=== PATIENT | male | born 1980 | race American Indian/Alaskan Native ===

== ENCOUNTER 2017-03-06 15:14 | Outpatient (CLI) | payer OTHER ==
--- NOTE | 2017-03-06 16:35 | XRay Report ---
Lumbar spine: Pain. AP and lateral views demonstrate mild anterior spondylosis at the superior margins of L4 and L5. Vertebral height, alignment, and interspaces are preserved. The bones are well-mineralized. Of incidental note is an IVC filter. No prior exams. Impression: Mild degenerative spondylosis. Cervical spine: Pain. The patient has pedicle screws bilaterally from C4-C7 with anterior hardware stabilizing fusions between C5 and C7. Although the hardware obscures much of the bone there appears to be normal alignment and the interspaces to C-5 over preserved. No prevertebral swelling. Impression: Surgical changes. No acute finding identified.
== END 2017-03-06 15:15 | disposition home or self-care (01) ==
LOC: XRAY 15:14
PROVIDERS: ATTEND Internal Medicine
DX: Z02.71 Encounter for disability determination (principal); M47.896 Other spondylosis, lumbar region; M43.22 Fusion of spine, cervical region; M54.2 Cervicalgia
CPT/HCPCS: 72040; 72100

== ENCOUNTER 2018-07-12 01:11 | Emergency (ER) | payer SELFPAY ==
[2018-07-12 02:06] VITALS: BP 117/86
[2018-07-12] MEDS ORDERED: MOTRIN PO ONE (03:49)
== END 2018-07-12 05:04 | disposition left against medical advice (07) ==
LOC: ED 01:11
DX: S61.216A Laceration without foreign body of right little finger without damage to nail, initial encounter (principal); Z53.21 Procedure and treatment not carried out due to patient leaving prior to being seen by health care provider; W26.0XXA Contact with knife, initial encounter; Y93.89 Activity, other specified; Y92.89 Other specified places as the place of occurrence of the external cause; Y99.8 Other external cause status

== ENCOUNTER 2018-07-12 19:11 | Emergency (ER) | payer SELFPAY ==
[2018-07-12 19:24] VITALS: BP 136/86
[2018-07-12] MEDS ORDERED: XYLOCAINE 1% MPF 5 mL INFILTRATI ONE (21:24)
--- NOTE | 2018-07-12 22:08 | XRay Report ---
FINAL REPORT PROCEDURE: XR FINGER(S) 2+V RT TECHNIQUE: RIGHT 5th finger radiographs, including AP, lateral, and oblique views. HISTORY: laceration COMPARISON: No prior studies are available for comparison. FINDINGS: Fracture (s) and/or Dislocation(s): None . Alignment: Normal. Joint space(s): Normal . Soft tissues: Normal . Bone mineralization: Normal . Foreign bodies: None . IMPRESSION: Normal Examination
[2018-07-12] MEDS ORDERED: BOOSTRIX IM ONE (22:13)
--- NOTE | 2018-07-12 22:16 | Emergency Department Report ---
- General Chief Complaint: Wound/Laceration Stated Complaint: RIGHT HAND FINGER LACERATION Time Seen by Provider: 07/12/18 21:23 Source: patient, family Mode of arrival: Ambulatory Limitations: No Limitations - History of Present Illness Initial Comments: Patient states he cut his pinky finger palmar side with a piece of glass last night presents with a 1 cm laceration distal first joint range of motion intact no nerve tendon or muscle involvement last tetanus shot unknown Onset/Timin -: hour(s) Location: other (right small finger ) Place: home Patient Tetanus UTD: No Context: accidental Associated Symptoms: pain Treatments Prior to Arrival: bandage - Related Data Previous Rx's Medication Instructions Recorded Last Taken Type Cephalexin [Keflex] 500 mg PO TID #30 capsule 07/12/18 Unknown Rx traMADol [Ultram] 50 mg PO Q6HR PRN 3 Days #12 tablet 07/12/18 Unknown Rx Allergies Allergy/AdvReac Type Severity Reaction Status Date / Time No Known Allergies Allergy Verified 07/12/18 05:40 ED Review of Systems ROS: Stated complaint: RIGHT HAND FINGER LACERATION Other details as noted in HPI Constitutional: denies: chills, fever Eyes: denies: eye pain, eye discharge, vision change ENT: denies: ear pain, throat pain Respiratory: denies: cough, shortness of breath, wheezing Cardiovascular: denies: chest pain, palpitations Endocrine: no symptoms reported Gastrointestinal: denies: abdominal pain, nausea, diarrhea Genitourinary: denies: urgency, dysuria Musculoskeletal: other (right pinky laceration ) Skin: other (laceration pinky ). denies: rash, lesions Neurological: denies: headache, weakness, paresthesias Psychiatric: denies: anxiety, depression Hematological/Lymphatic: denies: easy bleeding, easy bruising ED Past Medical Hx - Past Medical History Additional medical history: DVT - Surgical History Additional Surgical History: Neck Surgery - Social History Smoking Status: Current Every Day Smoker Substance Use Type: Marijuana - Medications Home Medications: Home Medications Medication Instructions Recorded Confirmed Last Taken Type Cephalexin [Keflex] 500 mg PO TID #30 capsule 07/12/18 Unknown Rx traMADol [Ultram] 50 mg PO Q6HR PRN 3 Days #12 tablet 07/12/18 Unknown Rx ED Physical Exam - General Limitations: No Limitations General appearance: alert, in no apparent distress - Head Head exam: Present: atraumatic, normocephalic - Eye Eye exam: Present: normal appearance - ENT ENT exam: Present: mucous membranes moist - Neck Neck exam: Present: normal inspection - Respiratory Respiratory exam: Present: normal lung sounds bilaterally. Absent: respiratory distress - Cardiovascular Cardiovascular Exam: Present: regular rate, normal rhythm. Absent: systolic murmur, diastolic murmur, rubs, gallop - GI/Abdominal GI/Abdominal exam: Present: soft, normal bowel sounds - Rectal Rectal exam: Present: deferred - Extremities Exam Extremities exam: Present: tenderness - Expanded Upper Extremity Exam Right Hand Wrist exam: Present: laceration (righ pinky kimbrough less than 1 cm ) Neuro motor exam: Present: wrist extension intact, thumb opposition intact, thumb IP flexion intact, thumb adduction intact, fingers 2-5 abduction intact Neurosensory exam: Present: 2-point discrimination, radial nerve intact, ulnar nerve intact, median nerve intact Vascular: Present: normal capillary refill, radial pulse, brachial pulse, ulnar pulse. Absent: vascular compromise, Pallo, pulse deficit radial art, pulse deficit ulnar art, pulse deficit brachial art - Back Exam Back exam: Present: normal inspection - Neurological Exam Neurological exam: Present: alert, oriented X3, CN II-XII intact, normal gait, reflexes normal. Absent: motor sensory deficit - Psychiatric Psychiatric exam: Present: normal affect, normal mood - Skin Skin exam: Present: warm, dry, intact, normal color. Absent: rash ED Course Vital Signs 07/12/18 19:19 Pulse Rate 93 H Blood Pressure 136/86 O2 Sat by Pulse 99 Oximetry - Laceration /Wound Repair Right Anterior Palm Finger Wound Location: upper extremity (right kimbrough pinky ) Wound Length (cm): 1 Wound's Depth, Shape: superficial, linear Wound Explored: clean Irrigated w/ Saline (ccs): 50 Betadine Prep?: Yes Anesthesia: 1% Lidocaine Volume Anesthetic (ccs): 2 (digital block ) Wound Debrided: minimal Wound Repaired With: sutures Suture Size/Type: 4:0 Number of Sutures: 4 Layer Closure?: No Sterile Dressing Applied?: Yes Progress: Right pinky laceration x-ray negative for fracture there is no nerve tendon or muscle involvement 1 similar laceration base of right pinky palmar bleeding controlled we'll clean with Betadine solution a anesthesia with 1% lidocaine plain . Digital block explained time between Reading and repaired with patient and possibility of increased infection patient verbalized understanding of same and irrigated with 50 mL of sterile saline and no foreign debris or contamination noted . 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 Instruction patient will be DC'd home in stable condition at this time ED Medical Decision Making - Radiology Data Radiology results: report reviewed, image reviewed no fracture no soft tissue abnormality - Medical Decision Making Right finger laceration repair x-ray negative for fracture or foreign bodies there is no nerve tendon or muscle involvement or any motions intact C procedure note we DC with rx for Keflex when necessary pain medicine patient follow-up with [facility] in 2 days for wound check patient given wound care instructions including signs and symptoms of infection Critical care attestation.: If time is entered above; I have spent that time in minutes in the direct care of this critically ill patient, excluding procedure time. ED Disposition Clinical Impression: Laceration of finger Qualifiers: Encounter type: initial encounter Finger: little finger Damage to nail status: without damage Foreign body presence: without foreign body Laterality: right Qualified Code(s): S61.216A - Laceration without foreign body of right little finger without damage to nail, initial encounter Disposition: DC-01 TO HOME OR SELFCARE Is pt being admited?: No Does the pt Need Aspirin: No Condition: Good Instructions: Laceration (ED), Suture Care (ED) Prescriptions: Cephalexin [Keflex] 500 mg PO TID #30 capsule traMADol [Ultram] 50 mg PO Q6HR PRN 3 Days #12 tablet PRN Reason: Pain Referrals: PRIMARY CARE, [Primary Care Provider] - 3-5 Days Forms: Work/School Release Form(ED) Time of Disposition: 22:47
== END 2018-07-12 23:03 | disposition home or self-care (01) ==
LOC: ED 19:11
DX: S61.216A Laceration without foreign body of right little finger without damage to nail, initial encounter (principal); F17.200 Nicotine dependence, unspecified, uncomplicated; F12.10 Cannabis abuse, uncomplicated; Z86.718 Personal history of other venous thrombosis and embolism; W25.XXXA Contact with sharp glass, initial encounter; Y93.89 Activity, other specified; Y99.8 Other external cause status; Y92.019 Unspecified place in single-family (private) house as the place of occurrence of the external cause
CPT/HCPCS: 90471; 90715; 99283

== ENCOUNTER 2018-07-25 10:31 | Emergency (ER) | payer SELFPAY ==
[2018-07-25 10:41] VITALS: BP 139/83
--- NOTE | 2018-07-25 11:16 | Emergency Department Report ---
ED Recheck HPI - General Chief Complaint: Laceration/Recheck/Suture Stated Complaint: STITCHS REMOVED Time Seen by Provider: 07/25/18 10:54 Source: patient Mode of arrival: Ambulatory Limitations: No Limitations - History of Present Illness Initial Comments: This is a 37-year-old male here to have his stitches removed from his right fourth digit that was placed on 07/12/2018. He denies any redness, swelling or drainage at site. He was placed on antibiotic and pain medication and denies any pain at present. No other complaints. MD Complaint: suture/staple removal Onset/Timin -: days(s) Initial Visit For: laceration Returns Today for: staple/Stitch removal Symptoms Since Prior Visit: no new symptoms Context: planned re-check Associated Symptoms: none Treatments Prior to Arrival: Given Antibiotics on, Given Pain Meds on - Related Data Previous Rx's Medication Instructions Recorded Last Taken Type Cephalexin [Keflex] 500 mg PO TID #30 capsule 07/12/18 Unknown Rx traMADol [Ultram] 50 mg PO Q6HR PRN 3 Days #12 tablet 07/12/18 Unknown Rx Allergies Allergy/AdvReac Type Severity Reaction Status Date / Time No Known Allergies Allergy Verified 07/25/18 10:40 ED Review of Systems ROS: Stated complaint: STITCHS REMOVED Other details as noted in HPI Constitutional: denies: chills, fever Respiratory: denies: cough, shortness of breath, wheezing Cardiovascular: denies: chest pain, palpitations Gastrointestinal: denies: nausea, vomiting Musculoskeletal: denies: back pain, joint swelling, arthralgia, myalgia Skin: other (healed laceration with sutures). denies: rash, lesions Neurological: denies: paresthesias ED Past Medical Hx - Past Medical History Previous Medical History?: Yes Additional medical history: DVT - Surgical History Past Surgical History?: Yes Additional Surgical History: Neck Surgery - Family History Family history: hypertension - Social History Smoking Status: Current Every Day Smoker Substance Use Type: Alcohol - Medications Home Medications: Home Medications Medication Instructions Recorded Confirmed Last Taken Type Cephalexin [Keflex] 500 mg PO TID #30 capsule 07/12/18 Unknown Rx traMADol [Ultram] 50 mg PO Q6HR PRN 3 Days #12 tablet 07/12/18 Unknown Rx ED Physical Exam - General Limitations: No Limitations General appearance: alert, in no apparent distress - Head Head exam: Present: atraumatic, normocephalic - Eye Eye exam: Present: normal appearance, PERRL - ENT ENT exam: Present: normal exam - Neck Neck exam: Present: normal inspection, full ROM. Absent: tenderness - Respiratory Respiratory exam: Present: normal lung sounds bilaterally. Absent: respiratory distress - Cardiovascular Cardiovascular Exam: Present: regular rate, normal rhythm, normal heart sounds, gallop - Extremities Exam Extremities exam: Present: normal inspection, full ROM, normal capillary refill , other (No cce. + 2 pulses in all extremities, no neurovascular compromise). Absent: tenderness, pedal edema, joint swelling - Neurological Exam Neurological exam: Present: alert, oriented X3, normal gait - Psychiatric Psychiatric exam: Present: normal affect, normal mood - Skin Skin exam: Present: warm, dry, intact, normal color, other (patient with small healed laceration to palmar side of the distal phalanx right fourth finger. 4 stitches noted without any signs of infection.). Absent: erythema - Expanded Skin Exam Expanded Distribution of rash: RUE (distal fourth phalanx right fourth digit, palmar side ) Description of rash: Absent: tenderness, erythematous, swelling, discharge, fluctuant, indurated ED Course Vital Signs 07/25/18 10:36 Temperature 98.6 F Pulse Rate 74 Respiratory 16 Rate Blood Pressure 139/83 O2 Sat by Pulse 100 Oximetry - Reevaluation(s) Reevaluation #1: 07/25/18 11:23 stable throughout ED course. 4 sutures removed from left fourth digit right hand without any complications. Wound edges well approximated and healing well. ED Recheck MDM - Medical Decision Making This is a 37-year-old male here to have the stitches removed from his finger that was placed on 07/12/2018. He is having no complaints. Assessment/plan 1: Encounter For suture removal-4 sutures was removed from right fourth finger. Wound edges are well approximated without any signs of infection. Patient with full range of motion to the finger and no signs of infection. He completed his antibiotic. Discharged home in stable condition. Vital signs are stable he is afebrile and has no pain. He is to follow up with his primary care physician when necessary. Critical care attestation.: If time is entered above; I have spent that time in minutes in the direct care of this critically ill patient, excluding procedure time. ED Disposition Clinical Impression: Encounter for removal of sutures Disposition: TO HOME OR SELFCARE Is pt being admited?: No Does the pt Need Aspirin: No Condition: Stable Instructions: Suture Removal (ED) Additional Instructions: Follow-up the primary care physician as needed. Keep Affected area clean and dry Referrals: PRIMARY CARE, [Primary Care Provider] - 3-5 Days [facility] [Outside] - 3-5 Days Forms: Work/School Release Form(ED)
== END 2018-07-25 11:30 | disposition home or self-care (01) ==
LOC: ED 10:31
DX: Z48.01 Encounter for change or removal of surgical wound dressing (principal); S61.218D Laceration without foreign body of other finger without damage to nail, subsequent encounter

== ENCOUNTER 2019-03-10 01:03 | Inpatient (IN) | payer SELFPAY ==
[2019-03-10 01:33] LABS: Basophils # (Auto) 0.1 K/mm3 (0.0-0.1); Basophils % (Auto) 0.7 % (0.0-1.8); Eosinophils # (Auto) 0.2 K/mm3 (0.0-0.4); Hematocrit 43.2 % (35.5-45.6); Hemoglobin 14.9 gm/dl (11.8-15.2); Lymphocytes % (Auto) 26.2 % (13.4-35.0); Mean Corpuscular HGB Conc 35 % (32-34); Mean Corpuscular Volume 90 fl (84-94); Monocytes # (Auto) 0.6 K/mm3 (0.0-0.8); Monocytes % (Auto) 7.5 % (0.0-7.3); Platelet Count 270 K/mm3 (140-440); Red Blood Count 4.83 M/mm3 (3.65-5.03); Red Cell Distribution Width 13.7 % (13.2-15.2)
--- NOTE | 2019-03-10 01:45 | XRay Report ---
PROCEDURE: XR CHEST 1V AP TECHNIQUE: A single view the chest was obtained. HISTORY: Chest Pain COMPARISONS: None FINDINGS: The lungs are clear. Heart size is normal. Pleural fluid is not seen. The bones and soft tissues reve al hardware in the lower cervical spine from previous multilevel fusion surgery. IMPRESSION: No acute cardiopulmonary process.. This document is electronically signed by Stef Arias MD., March 10 2019 01:43:44 AM ET
[2019-03-10 01:47] LABS: Partial Thromboplastin Time 23.6 Sec. (24.2-36.6)
[2019-03-10 01:56] LABS: BUN/Creatinine Ratio 10; Blood Urea Nitrogen 13 mg/dL (9-20); Calcium 9.9 mg/dL (8.4-10.2); Hemolysis Index 5
[2019-03-10] MEDS ORDERED: NACL 0.9% 500 ML 500 ML IV ONE ×2 (03:32→03:59)
[2019-03-10] MEDS ORDERED: SUBLIMAZE IV ONE (03:58)
[2019-03-10] MEDS ORDERED: LOVENOX SUB-Q STA (03:59)
--- NOTE | 2019-03-10 04:00 | Emergency Department Report ---
ED General Adult HPI - General Chief complaint: Chest Pain Stated complaint: CHEST TIGHTNESS HAND NUMBNESS Time Seen by Provider: 03/10/19 03:48 Source: patient, RN notes reviewed, old records reviewed Mode of arrival: Ambulatory Limitations: No Limitations - History of Present Illness Initial comments: This is a 38-year-old gentleman. The patient has a past medical history of recurrent DVT, supposed to be on anticoagulation, but noncompliant, chronic lower extremity thrombus, chronic lower extremity wounds The patient presents to the emergency room today with a complaint of nontraumatic chest pain. The chest pain is central and right-sided, left-sided. It does not radiate anywhere. He makes no complaint of right arm numbness to this provider. He reports acute on chronic leg pain. The leg pain is in the bilateral groin regions and posterior hamstrings. It radiates distally to the knees. There is no lower extremity weakness. There is no saddle anesthesia. There is no bladder or bowel retention or incontinence. Also endorses headache. The headache is left-sided and frontal. It is not sudden or thunderclap in nature. It did not reach maximal intensity within an hour. Denies fevers or chills. No recent cardiac risk stratification. Has not followed up with a primary care doctor. 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 Had a hypercoagulable workup in October 2018, appears to have been unremarkable. -: Gradual Location: back, left, right, lower extremity Radiation: extremity Severity scale (0 -10): 10 Quality: aching Consistency: intermittent Improves with: rest Worsens with: movement - Related Data Previous Rx's Medication Instructions Recorded Last Taken Type Apixaban [Eliquis] 5 mg PO BID #60 tablet 10/18/18 Unknown Rx Apixaban [Eliquis] 10 mg PO BID #14 tablet 10/18/18 Unknown Rx Allergies Allergy/AdvReac Type Severity Reaction Status Date / Time No Known Allergies Allergy Verified 07/25/18 10:40 ED Review of Systems ROS: Stated complaint: CHEST TIGHTNESS HAND NUMBNESS Other details as noted in HPI Constitutional: malaise. denies: fever Eyes: denies: eye discharge ENT: denies: epistaxis Respiratory: denies: cough Cardiovascular: chest pain Gastrointestinal: denies: nausea, vomiting, hematochezia Genitourinary: denies: dysuria Musculoskeletal: arthralgia, myalgia Skin: lesions Neurological: headache. denies: weakness ED Past Medical Hx - Past Medical History Previous Medical History?: Yes Hx Deep Vein Thrombosis: Yes Additional medical history: DVT - Surgical History Past Surgical History?: Yes Additional Surgical History: Neck Surgery - Social History Smoking Status: Never Smoker Substance Use Type: Marijuana - Medications Home Medications: Home Medications Medication Instructions Recorded Confirmed Last Taken Type Apixaban [Eliquis] 5 mg PO BID #60 tablet 10/18/18 Unknown Rx Apixaban [Eliquis] 10 mg PO BID #14 tablet 10/18/18 Unknown Rx ED Physical Exam - General Limitations: No Limitations General appearance: alert, in no apparent distress - Head Head exam: Present: atraumatic, normocephalic - Eye Eye exam: Present: normal appearance, EOMI. Absent: nystagmus - ENT ENT exam: Present: normal exam, normal orophraynx, mucous membranes moist, normal external ear exam - Neck Neck exam: Present: normal inspection, full ROM. Absent: tenderness, meningismus - Respiratory Respiratory exam: Present: normal lung sounds bilaterally. Absent: respiratory distress - Cardiovascular Cardiovascular Exam: Present: regular rate, normal rhythm, normal heart sounds. Absent: bradycardia, tachycardia, irregular rhythm, systolic murmur, diastolic murmur, rubs, gallop - GI/Abdominal GI/Abdominal exam: Present: soft. Absent: distended, tenderness, guarding, rebound, rigid, pulsatile mass - Rectal Rectal exam: Present: deferred - Extremities Exam Extremities exam: Present: full ROM, tenderness (tenderness in the bilateral proximal groin. Tenderness on the posterior hamstring. No pus, streaking. Escorted by nurse Stef See), other (2+ pulses noted in the bilateral upper, lower extremities. Compartments soft. No long bony tenderness. The pelvis is stable.). Absent: normal inspection (chronic-appearing wounds noted on the left lower extremity. Stasis changes are noted.), calf tenderness - Back Exam Back exam: Present: normal inspection, full ROM. Absent: tenderness, CVA tenderness (R), paraspinal tenderness, vertebral tenderness - Neurological Exam Neurological exam: Present: alert, other (Extraocular movements intact. Tongue midline. No facial droop. Facial sensation intact to light touch in the V1, V2, V3 distribution bilaterally. 5 and 5 strength in 4 extremities.. Sensation is intact to light touch in 4 extremities.). Absent: motor sensory deficit - Psychiatric Psychiatric exam: Present: normal affect, normal mood - Skin Skin exam: Present: warm, dry, intact, normal color. Absent: rash ED Course Vital Signs 03/10/19 03/10/19 01:12 03:22 Temperature 98.1 F Pulse Rate 89 72 Respiratory 18 19 Rate Blood Pressure 134/84 118/81 [Right] O2 Sat by Pulse 99 99 Oximetry ED Medical Decision Making - Lab Data Result diagrams: 03/10/19 01:16 03/10/19 01:16 Vital Signs 03/10/19 03/10/19 01:12 03:22 Temperature 98.1 F Pulse Rate 89 72 Respiratory 18 19 Rate Blood Pressure 134/84 118/81 [Right] O2 Sat by Pulse 99 99 Oximetry Lab Results 03/10/19 03/10/19 03/10/19 Range/Units 01:16 01:16 01:16 WBC 7.8 (4.5-11.0) K/mm3 RBC 4.83 (3.65-5.03) M/mm3 Hgb 14.9 (11.8-15.2) gm/dl Hct 43.2 (35.5-45.6) % MCV 90 (84-94) fl MCH 31 (28-32) pg MCHC 35 H (32-34) % RDW 13.7 (13.2-15.2) % Plt Count 270 (140-440) K/mm3 Lymph % (Auto) 26.2 (13.4-35.0) % Emanuel % (Auto) 7.5 H (0.0-7.3) % Eos % (Auto) 3.0 (0.0-4.3) % Baso % (Auto) 0.7 (0.0-1.8) % Lymph # 2.0 (1.2-5.4) K/mm3 Emanuel # 0.6 (0.0-0.8) K/mm3 Eos # 0.2 (0.0-0.4) K/mm3 Baso # 0.1 (0.0-0.1) K/mm3 Seg Neutrophils % 62.6 (40.0-70.0) % Seg Neutrophils # 4.9 (1.8-7.7) K/mm3 PT 13.8 (12.2-14.9) Sec. INR 1.00 (0.87-1.13) APTT 23.6 L (24.2-36.6) Sec. Sodium 139 (137-145) mmol/L Potassium 4.5 (3.6-5.0) mmol/L Chloride 96.9 L (98-107) mmol/L Carbon Dioxide 27 (22-30) mmol/L Anion Gap 20 mmol/L BUN 13 (9-20) mg/dL Creatinine 1.3 (0.8-1.5) mg/dL Estimated GFR > 60 ml/min BUN/Creatinine Ratio 10 % Glucose 93 (75-100) mg/dL Calcium 9.9 (8.4-10.2) mg/dL Troponin T < 0.010 (0.00-0.029) ng/mL - EKG Data -: EKG Interpreted by Ne EKG shows normal: sinus rhythm - EKG Data 03/10/19 05:29 CT scan EKG shows normal sinus, 75 bpm, no axis, QTC within normal limits, left ventricular hypertrophy, atrial enlargement, of this EKG is not consistent with ST elevation myocardial infarction. - Radiology Data Radiology results: report reviewed, image reviewed Print Report Referring Physician: MARINA BAHENA Patient Name: CARLOS HUSTON Date of : 1980 Sex: Male Report Date: 2019-03-10 Report Status: [place] [address] Cat Scan Report Signed Patient: CARLOS HUSTON MR#: [id number] : 1980 Acct:[id number] Age/Sex: 38 / M ADM Date: 03/10/19 Loc: ED Attending Dr: Ordering Physician: MARINA BAHENA MD Date of Service: 03/10/19 Procedure(s): CT angio chest Accession Number(s): [id number] cc: MARINA BAHENA MD PROCEDURE: CT ANGIO CHEST TECHNIQUE: Computerized tomographic angiography of the chest was performed after the IV injection of iodinated nonionic contrast including image processing. The image data was postprocessed using 2-dimensional multiplanar reformatted (MPR) and 3-dimensional (MIP and/or volume rendered) techniques. Automated exposure control, adjustment of mA and/or kV according to patient size, or iterative reconstruction dose optimization techniques were utilized. CT DOSE LENGTH PRODUCT: 480.7 mGycm HISTORY: Rule Out PE COMPARISONS: None . FINDINGS: Heart and pericardium: Normal. Thoracic aorta: There is no thoracic aortic aneurysm or dissection. Pulmonary vasculature: There is no pulmonary embolism. Lymph nodes: No enlarged thoracic lymph nodes. Lungs: Lungs are expanded. There are no infiltrates.. Pleural space: No effusion, thickening, or pneumothorax. Musculoskeletal structures: No significant abnormality. Upper abdominal structures: No significant abnormality. IMPRESSION: There is no pulmonary embolism. . This document is electronically signed by Manuel Riggs MD., March 10 2019 04:08:02 AM ET Transcribed By: CO Dictated By: MANUEL RIGGS MD Electronically Authenticated By: MANUEL RIGGS MD Signed Date/Time: 03/10/19 7820 - Medical Decision Making Differential diagnosis, including not limited to: GERD, gastritis, hiatal hernia, acute coronary syndrome, pulmonary and was, pneumonia, chronic recurrent thromboembolic disease in the groin Assessment and plan: 38-year-old male, reported multiple DVTs, noncompliant with anticoagulation, groin pain, leg pain, chronic wounds, CT scan of the chest negative for pulmonary embolus, loaded empirically with Lovenox, patient presents after hours, therefore we cannot obtain lower extremity DVT study. Troponin negative 2. EKG age appropriate. Patient appears comfortable. Patient will be admitted to the medical service for reinitiation of therapeutic anticoagulation, given inability to follow up, welfare case worker evaluation, and cardiac risk stratification, given history of hypercoagulable state. Case is presented to the Hospital physician, Dr.O Wilkerson, who has accepted the patient to the medical service. Critical care attestation.: If time is entered above; I have spent that time in minutes in the direct care of this critically ill patient, excluding procedure time. ED Disposition Clinical Impression: Chest pain, Leg pain, Noncompliance with medication regimen Disposition: OP ADMIT IP TO THIS HOSP Is pt being admited?: Yes Does the pt Need Aspirin: Yes Condition: Good Instructions: Chest Pain (ED) Referrals: JIMMY CERVANTES MD [Primary Care Provider] - 3-5 Days
--- NOTE | 2019-03-10 04:10 | Cat Scan Report ---
PROCEDURE: CT ANGIO CHEST TECHNIQUE: Computerized tomographic angiography of the chest was performed after the IV injection of iodinated nonionic contrast including image processing. The image data was postprocessed using 2-di mensional multiplanar reformatted (MPR) and 3-dimensional (MIP and/or volume rendered) techniques. Au tomated exposure control, adjustment of mA and/or kV according to patient size, or iterative reconstr uction dose optimization techniques were utilized. CT DOSE LENGTH PRODUCT: 480.7 mGycm HISTORY: Rule Out PE COMPARISONS: None . FINDINGS: Heart and pericardium: Normal. Thoracic aorta: There is no thoracic aortic aneurysm or dissection. Pulmonary vasculature: There is no pulmonary embolism. Lymph nodes: No enlarged thoracic lymph nodes. Lungs: Lungs are expanded. There are no infiltrates.. Pleural space: No effusion, thickening, or pneumothorax. Musculoskeletal structures: No significant abnormality. Upper abdominal structures: No significant abnormality. IMPRESSION: There is no pulmonary embolism. . This document is electronically signed by Manuel Carcamo MD., March 10 2019 04:08:02 AM ET
[2019-03-10] MEDS ORDERED: MORPHINE IV PRN (05:02)
[2019-03-10] MEDS ORDERED: ZOFRAN IV PRN (05:02)
[2019-03-10] MEDS ORDERED: TYLENOL PO PRN (05:03)
[2019-03-10] MEDS ORDERED: NITROSTAT SL PRN (05:04)
[2019-03-10] MEDS ORDERED: BABY ASPIRIN PO ONE ×2 (05:31→05:38)
[2019-03-10] MEDS ORDERED: NITRO-BID 2% TP ONE (06:10)
[2019-03-10] MEDS ORDERED: MORPHINE ONE (06:11)
[2019-03-10] MEDS ORDERED: BABY ASPIRIN ONE (06:11)
[2019-03-10] MEDS: NITRO-BID 2% TP SCH ×2 (06:19→11:11)
[2019-03-10 07:44] LABS: Creatine Kinase MB 1.9 ng/mL (0.0-4.0)
--- NOTE | 2019-03-10 09:09 | History and Physical Report ---
CHIEF COMPLAINT: Chest pain. Other complaint includes pain in the lower extremities. HISTORY OF PRESENT ILLNESS: The patient is a 38-year-old male who said he has been having tightness in the chest and also some numbness in the hands. The patient said that symptom has been going on for few days and denied history of diaphoresis, nausea or vomiting but admitted to having some shortness of breath. The patient also has pain in both lower extremities. There is no history of fever or chills and no history of cough and the patient was seen in the Emergency Room. PAST MEDICAL HISTORY: Pertinent for recurrent deep vein thrombosis and used to be on Coumadin but stopped Coumadin after some months. PAST SURGICAL HISTORY: Pertinent for neck surgery. FAMILY HISTORY: Noncontributory. SOCIAL HISTORY: The patient does not smoke cigarettes, does not drink alcohol and the patient uses illicit drug, notably marijuana. MEDICATIONS: The patient said he used to be on the warfarin or Coumadin and also was started on Eliquis, which he stopped towards October 2018. ALLERGIES: There are no known drug allergies. REVIEW OF SYSTEMS: CONSTITUTIONAL: There is no fever, no chills, no diaphoresis. HEENT: There is no headache or sore throat. CARDIOVASCULAR SYSTEM: There is chest pain, but no orthopnea. RESPIRATORY SYSTEM: There is shortness of breath and no cough. GASTROINTESTINAL SYSTEM: There is no nausea, no vomiting. No abdominal pain, diarrhea or constipation. NEUROLOGICAL SYSTEM: There is no numbness, no dizziness, no altered mental status. MUSCULOSKELETAL SYSTEM: Pain in both lower extremities noted. No joint swelling. DERMATOLOGICAL SYSTEM: There is no skin rash or itching. GENITOURINARY SYSTEM: There is no dysuria, hematuria or flank pain. Rest of system review is normal. PHYSICAL EXAMINATION: GENERAL: At the time of exam, the patient was found to be alert, oriented x 3 and not in acute distress. VITAL SIGNS: At the time of initial presentation shows temperature of 98.1 degrees Fahrenheit, pulse of 89, respirations 18, blood pressure 134/84, O2 sat of 99% on room air. HEENT: Showed pupils to be equal, round, and reactive to light and accommodating. Extraocular motions are intact. NECK: Supple with no JVD or carotid bruit. CARDIOVASCULAR: Showed normal first and second heart sounds with no gallops or murmurs. RESPIRATORY: Showed good air entry on both sides of the lungs with no abnormal breath sounds. GASTROINTESTINAL: Showed abdomen to be full, soft, nontender with no organomegaly or rigidity. NEUROLOGIC: Showed no focal deficit. MUSCULOSKELETAL: Showed no joint swelling or tenderness. DERMATOLOGIC: Showed no skin rash. GENITOURINARY: Showed no costovertebral angle tenderness. PERTINENT LABORATORY AND IMAGING STUDIES: The patient had chest x-ray done that shows no acute cardiopulmonary lesion. Also, the patient has CT angiogram of the chest done that shows no pulmonary embolism. The patient's CBC back unremarkable. The patient's coagulation test was unremarkable. The patient's chemistry was also unremarkable. Cardiac enzymes, troponin came back normal. DIAGNOSES: 1. Chest pain. 2. Leg pain, rule out deep venous thrombosis. PLAN OF CARE: 1. The patient will be admitted to telemetry. 2. The patient will have cardiac enzymes involving troponin, total CK and CK-MB checked serially every 6 hours x 2 more levels. 3. The patient will be n.p.o. for Lexiscan stress test this morning. 4. The patient will be on aspirin 325 mg by mouth daily. 5. The patient will be on Lovenox 1 mg/kg q.12 hours. 6. The patient will be on IV morphine 2 mg every 3 hours as needed for pain and IV Zofran 4 mg every 8 hours for nausea and vomiting. 7. The patient will be on nitro paste half inch to the anterior chest wall q.i.d. and will be on Nitrostat 0.4 mg every 5 minutes for breakthrough chest pain. 8. The patient will be on Tylenol 650 mg by mouth every 4 hours as needed for fever and headache. 9. The patient will be on aspirin 81 mg daily. 10. The patient will have bilateral Doppler ultrasound this morning to rule out deep vein thrombosis. 11. The patient will have protein C and protein S checked for deficiencies in the out patient clinic because of recurrent deep vein thrombosis. JOB# [id number] OCN/NTS ROXANND
[2019-03-10] MEDS ORDERED: LEXISCAN IV ONE (09:35)
[2019-03-10] MEDS ORDERED: ASPIRIN PO SCH (10:00)
--- NOTE | 2019-03-10 10:26 | Discharge Summary ---
Providers - Providers Date of Admission: 03/10/19 04:58 Date of discharge: 03/10/19 Attending physician: LEANDRA RAZA MD [facility] Reason for admission: chest pain and pain in the lower extremities Condition: Good Hospital course: 38-year-old -[place] male with history of chronic recurrent DVT non- compliant with anticoagulation (Coumadin) therapy presented to the ED with complaints of tightness in the chest, numbness in the hands, pain in lower extremities bilaterally for the past few days. He denies diaphoresis, nausea or vomiting. Admits to intermittent dyspnea. Troponin 3 negative, INR 1.0, no leukocytosis. EKG shows sinus rhythm at 75 bpm, consider left ventricular hypertrophy. CXR unrevealing for any acute pulmonary process. Stress testing preliminary results are negative. Given patient's history of chronic recurrent DVT patient will be discharged home with Coumadin 5 mg daily. Patient advised to follow up with his establish Coumadin clinic in 7 days. Discharge planning was discussed with patient and he is in agreement. He verbalized understanding. Diagnosis Acute chest pain Leg pain in patient with known history of recurrent DVT History of recurrent DVT- noncompliant with anticoagulation therapy Disposition: DC-01 TO HOME OR SELFCARE Time spent for discharge: 33 minutes Core Measure Documentation - Palliative Care Palliative Care/ Comfort Measures: Not Applicable - Core Measures Any of the following diagnoses?: none - VTE Discharge Requirements Deep Vein Thrombosis/Pulmonary Embolism Present on Admission: No Contraindication No Overlap Therapy order at DC: Not Indicated Exam - Constitutional Vitals: Temp Pulse Resp BP Pulse Ox 98.1 F 62 19 117/76 100 03/10/19 01:12 03/10/19 06:49 03/10/19 06:43 03/10/19 10:01 03/10/19 06:43 General appearance: Present: no acute distress - EENT Eyes: Present: PERRL, EOM intact ENT: hearing intact, clear oral mucosa - Neck Neck: Present: supple, normal ROM - Respiratory Respiratory effort: normal Respiratory: bilateral: CTA - Cardiovascular Heart rate: 68 (beats per minute) Heart Sounds: Present: S1 & S2. Absent: rub, click - Extremities Extremities: pulses symmetrical, No edema Peripheral Pulses: within normal limits - Abdominal General gastrointestinal: Present: soft, non-tender, non-distended, normal bowel sounds Male genitourinary: Present: deferred - Rectal Rectal Exam: deferred - Integumentary Integumentary: Present: clear, warm, dry - Musculoskeletal Musculoskeletal: gait normal, strength equal bilaterally - Psychiatric Psychiatric: appropriate mood/affect, intact judgment & insight - Neurologic Neurologic: CNII-XII intact, moves all extremities - Allied Health Allied health notes reviewed: nursing Plan Follow up with: JIMMY CERVANTES MD [Primary Care Provider] - 3-5 Days Coumadin, Clinic [Other] - 7 Days Forms: Work/School Release Form(ED) Prescriptions: Warfarin Sodium [Coumadin] 5 mg PO DAILY 30 Days #30 tablet
[2019-03-10 11:11] VITALS: BP 108/76
[2019-03-10] MEDS ORDERED: ULTRAM PO PRN (11:56)
[2019-03-10] MEDS ORDERED: ULTRAM ONE (12:25)
[2019-03-10 12:43] LABS: Creatine Kinase MB 1.9 ng/mL (0.0-4.0)
[2019-03-10] MEDS ORDERED: LOVENOX SUB-Q SCH (16:00)
--- NOTE | 2019-03-10 22:01 | Treadmill Report ---
THALLIUM STRESS TEST LEFT VENTRICLE: Left ventricular chamber size is within normal spread. Perfusion study demonstrates homogeneous uptake of the tracer in all segments, no significant defects identified. Gated analysis demonstrates normal left ventricular systolic function, ejection fraction 50%. CONCLUSION: Normal myocardial perfusion study. JOB# [id number] CA/NTS
--- NOTE | 2019-03-12 13:06 | Vascular Lab Report ---
PROCEDURE: VL VENOUS DUPLEX [facility] TECHNIQUE: TECHNIQUE: Cook scale, color and pulsed Doppler ultrasound with color flow and spectral an alysis evaluation of both lower extremities were performed to assess for deep vein thrombosis. HISTORY: LEG PAIN AND HISTORY OF RECURRENT DVT'S COMPARISONS: None currently available. FINDINGS: RIGHT extremity: Echogenic lesion along the wall of the proximal to distal SFV and into the popliteal vein with partia l compressibility. Lesion in the distal SFV and popliteal vein is more hypoechoic than the proximal s egment. The remainder of the vessels are patent with compressibility. LEFT extremity: Partial compressibility in the left superficial vein down to the 1 of 2 peroneal veins. Lesions are m ildly echogenic. The remainder of the vessels are patent with compressibility. Reflux noted in the le ft popliteal vein. IMPRESSION: * Nonocclusive chronic thrombus in the right proximal to mid SFV. Nonocclusive chronic to subacute t hrombus in the distal SFV and popliteal vein. * Nonocclusive chronic thrombus in the left superficial vein into the popliteal vein and extending i nto 1 of 2 peroneal veins. * Reflux in the left popliteal vein. This document is electronically signed by Ankur Christopher MD., Mar 12 2019 01:04:14 PM ET
== END 2019-03-10 15:27 | disposition home or self-care (01) | DRG 313 ==
LOC: ED 01:03 → 4A 04:58
PROVIDERS: ADMIT Internal Medicine; ATTEND Internal Medicine
DX: R07.89 Other chest pain (principal); I82.509 Chronic embolism and thrombosis of unspecified deep veins of unspecified lower extremity; F12.90 Cannabis use, unspecified, uncomplicated; Z79.01 Long term (current) use of anticoagulants; Z91.14 Patient's other noncompliance with medication regimen
CPT/HCPCS: 36415; 71045; 71275; 78452; 80048; 82550; 82553; 84484; 85025; 85610; 85730; 93005; 93010; 93017; 93970; G0378; A9502; J1650; J2270; J2785; J3010; J7040; Q9967

== ENCOUNTER 2019-04-06 20:52 | Emergency (ER) | payer OTHER ==
[2019-04-06 21:14] LABS: Basophils # (Auto) 0.1 K/mm3 (0.0-0.1); Basophils % (Auto) 0.6 % (0.0-1.8); Eosinophils # (Auto) 0.1 K/mm3 (0.0-0.4); Eosinophils % (Auto) 0.9 % (0.0-4.3); Hematocrit 39.1 % (35.5-45.6); Hemoglobin 13.9 gm/dl (11.8-15.2); Lymphocytes # (Auto) 1.7 K/mm3 (1.2-5.4); Lymphocytes % (Auto) 21.2 % (13.4-35.0); Mean Corpuscular HGB Conc 36 % (32-34); Mean Corpuscular Volume 87 fl (84-94); Monocytes # (Auto) 0.6 K/mm3 (0.0-0.8); Monocytes % (Auto) 7.3 % (0.0-7.3); Platelet Count 281 K/mm3 (140-440); Red Blood Count 4.48 M/mm3 (3.65-5.03); Red Cell Distribution Width 13.4 % (13.2-15.2)
[2019-04-06 21:27] LABS: INR 1.07 (0.87-1.13)
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
[2019-04-06] MEDS ORDERED: TORADOL IM ONE (21:29)
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
[2019-04-06 22:06] LABS: Alanine Aminotransferase 19 units/L (7-56); Albumin 4.5 g/dL (3.9-5); BUN/Creatinine Ratio 7; Blood Urea Nitrogen 9 mg/dL (9-20); Calcium 9.1 mg/dL (8.4-10.2); Hemolysis Index 45
[2019-04-06 22:49] VITALS: BP 115/70
== END 2019-04-07 01:00 | disposition home or self-care (01) ==
LOC: ED 20:52
DX: S60.221A Contusion of right hand, initial encounter (principal); Y09 Assault by unspecified means; Y93.89 Activity, other specified; Y92.89 Other specified places as the place of occurrence of the external cause; Y99.8 Other external cause status
CPT/HCPCS: 36415; 73130; 80053; 85025; 85610; 96372; 99283; J1885

== ENCOUNTER 2019-05-20 09:15 | Emergency (ER) | payer SELFPAY ==
[2019-05-20] MEDS ORDERED: NACL 0.9% 1000 ML IV ONE (10:02)
[2019-05-20] MEDS ORDERED: ZOFRAN IV ONE (10:05)
[2019-05-20] MEDS ORDERED: MORPHINE IV ONE (10:05)
[2019-05-20 10:30] LABS: Basophils # (Auto) 0.1 K/mm3 (0.0-0.1); Basophils % (Auto) 1.4 % (0.0-1.8); Eosinophils # (Auto) 0.2 K/mm3 (0.0-0.4); Eosinophils % (Auto) 4.5 % (0.0-4.3); Hematocrit 39.7 % (35.5-45.6); Hemoglobin 13.5 gm/dl (11.8-15.2); Lymphocytes # (Auto) 1.1 K/mm3 (1.2-5.4); Lymphocytes % (Auto) 19.9 % (13.4-35.0); Mean Corpuscular HGB Conc 34 % (32-34); Mean Corpuscular Volume 89 fl (84-94); Monocytes # (Auto) 0.4 K/mm3 (0.0-0.8); Monocytes % (Auto) 8.1 % (0.0-7.3); Platelet Count 346 K/mm3 (140-440); Red Blood Count 4.47 M/mm3 (3.65-5.03); Red Cell Distribution Width 13.4 % (13.2-15.2)
--- NOTE | 2019-05-20 10:42 | XRay Report ---
CHEST 1 VIEW INDICATION: sepsis. COMPARISON: None. FINDINGS: Support devices: None. Heart: Within normal limits. Lungs/Pleura: No acute air space or interstitial disease. Additional findings: None. IMPRESSION: No acute abnormality. Signer Name: Ministerio Alanis MD Signed: 05/20/2019 10:38 AM Workstation Name: [id number]
[2019-05-20 10:53] LABS: Alanine Aminotransferase 15 units/L (7-56); Albumin 3.9 g/dL (3.9-5); BUN/Creatinine Ratio 10; Blood Urea Nitrogen 9 mg/dL (9-20); Calcium 9.3 mg/dL (8.4-10.2); Hemolysis Index 7
[2019-05-20] MEDS ORDERED: ceFAZolin 2 GM in NACL 0.9% 100 ML IV SCH (11:00)
--- NOTE | 2019-05-20 11:08 | Emergency Department Report ---
ED General Adult HPI - General Chief complaint: Chest Pain Stated complaint: NECROTIC LEGS Time Seen by Provider: 05/20/19 09:28 Source: EMS Mode of arrival: Stretcher Limitations: No Limitations - History of Present Illness Initial comments: The patient presents to the emergency department with a chief complaint of bilateral leg pain and wound to left leg. Patient states that he's had this wound on his left leg in the lower aspect for longer in any year but it has become larger over the last couple weeks with drainage. Patient states she also has a wound on his right lower leg but it is not as bad. 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 Patient also complains of chest pain that started yesterday and located on the left side without radiation -: Sudden Location: lower extremity Radiation: non-radiation Severity scale (0 -10): 4 Quality: aching Consistency: constant Improves with: none Worsens with: none Associated Symptoms: denies other symptoms Treatments Prior to Arrival: none (additional) - Related Data Previous Rx's Medication Instructions Recorded Last Taken Type Warfarin Sodium [Coumadin] 5 mg PO DAILY 30 Days #30 tablet 03/10/19 Unknown Rx Naproxen [Naprosyn] 500 mg PO BID #14 tablet 04/06/19 Unknown Rx Acetaminophen/Codeine [Tylenol 1 tab PO Q6H PRN #12 tab 05/20/19 Unknown Rx /Codeine # 3 tab] Sulfamethoxazole/Trimethoprim 2 each PO BID #28 tablet 05/20/19 Unknown Rx [Bactrim DS TAB] Allergies Allergy/AdvReac Type Severity Reaction Status Date / Time No Known Allergies Allergy Verified 07/25/18 10:40 ED Review of Systems ROS: Stated complaint: NECROTIC LEGS Other details as noted in HPI Comment: All other systems reviewed and negative Constitutional: denies: chills, fever Eyes: denies: eye pain, eye discharge, vision change ENT: denies: ear pain, throat pain Respiratory: denies: cough, shortness of breath, wheezing Cardiovascular: chest pain. denies: palpitations Endocrine: no symptoms reported Gastrointestinal: denies: abdominal pain, nausea, diarrhea Genitourinary: denies: urgency, dysuria Musculoskeletal: other (leg pain). denies: back pain, joint swelling, arthralgia Skin: other (wound). denies: rash, lesions Neurological: denies: headache, weakness, paresthesias Psychiatric: denies: anxiety, depression Hematological/Lymphatic: denies: easy bleeding, easy bruising ED Past Medical Hx - Past Medical History Hx Deep Vein Thrombosis: Yes Additional medical history: DVT - Surgical History Additional Surgical History: Neck Surgery - Social History Smoking Status: Never Smoker Substance Use Type: Alcohol - Medications Home Medications: Home Medications Medication Instructions Recorded Confirmed Last Taken Type Warfarin Sodium [Coumadin] 5 mg PO DAILY 30 Days #30 tablet 03/10/19 Unknown Rx Naproxen [Naprosyn] 500 mg PO BID #14 tablet 04/06/19 Unknown Rx Acetaminophen/Codeine [Tylenol 1 tab PO Q6H PRN #12 tab 05/20/19 Unknown Rx /Codeine # 3 tab] Sulfamethoxazole/Trimethoprim 2 each PO BID #28 tablet 05/20/19 Unknown Rx [Bactrim DS TAB] ED Physical Exam - General Limitations: No Limitations General appearance: alert, in no apparent distress - Head Head exam: Present: atraumatic, normocephalic - Eye Eye exam: Present: normal appearance, PERRL, EOMI - ENT ENT exam: Present: mucous membranes moist - Neck Neck exam: Present: normal inspection - Respiratory Respiratory exam: Present: normal lung sounds bilaterally. Absent: respiratory distress - Cardiovascular Cardiovascular Exam: Present: regular rate, normal rhythm. Absent: systolic murmur, diastolic murmur, rubs, gallop - GI/Abdominal GI/Abdominal exam: Present: soft, normal bowel sounds. Absent: distended, te nderness - Rectal Rectal exam: Present: deferred - Extremities Exam Extremities exam: Present: normal inspection - Back Exam Back exam: Present: normal inspection - Neurological Exam Neurological exam: Present: alert, oriented X3, CN II-XII intact. Absent: motor sensory deficit - Psychiatric Psychiatric exam: Present: normal affect, normal mood - Skin Skin exam: Present: warm, dry, normal color, other (patient has a chronic ulcer to the medial aspect of the left leg and the posterior aspect of the left leg with mild drainage. There is no surrounding crepitus but there is mild erythema) ED Course Vital Signs 05/20/19 05/20/19 05/20/19 09:20 09:28 09:30 Temperature 98.3 F Pulse Rate 68 72 70 Respiratory 12 19 8 L Rate Blood Pressure 134/102 Blood Pressure 127/96 [Left] O2 Sat by Pulse 100 99 98 Oximetry 05/20/19 05/20/19 05/20/19 09:46 10:00 10:16 Temperature Pulse Rate 73 67 66 Respiratory 17 15 14 Rate Blood Pressure 134/102 140/100 140/100 Blood Pressure [Left] O2 Sat by Pulse 100 98 Oximetry 05/20/19 05/20/19 05/20/19 10:58 11:00 11:15 Temperature Pulse Rate 65 57 L 59 L Respiratory 14 12 14 Rate Blood Pressure 140/100 140/100 Blood Pressure [Left] O2 Sat by Pulse 98 Oximetry 05/20/19 05/20/19 05/20/19 11:31 11:45 12:00 Temperature Pulse Rate 54 L 66 57 L Respiratory 12 12 14 Rate Blood Pressure 155/97 158/105 141/100 Blood Pressure [Left] O2 Sat by Pulse 100 100 100 Oximetry 05/20/19 05/20/19 05/20/19 12:15 12:30 12:45 Temperature Pulse Rate 52 L 65 52 L Respiratory 12 10 L 13 Rate Blood Pressure 155/97 151/97 141/100 Blood Pressure [Left] O2 Sat by Pulse 100 100 99 Oximetry ED Medical Decision Making - Lab Data Result diagrams: 05/20/19 10:12 05/20/19 10:12 Lab Results 05/20/19 05/20/19 05/20/19 Range/Units 10:12 10:12 10:12 WBC 5.4 (4.5-11.0) K/mm3 RBC 4.47 (3.65-5.03) M/mm3 Hgb 13.5 (11.8-15.2) gm/dl Hct 39.7 (35.5-45.6) % MCV 89 (84-94) fl MCH 30 (28-32) pg MCHC 34 (32-34) % RDW 13.4 (13.2-15.2) % Plt Count 346 (140-440) K/mm3 Lymph % (Auto) 19.9 (13.4-35.0) % [place] % (Auto) 8.1 H (0.0-7.3) % Eos % (Auto) 4.5 H (0.0-4.3) % Baso % (Auto) 1.4 (0.0-1.8) % Lymph # 1.1 L (1.2-5.4) K/mm3 [place] # 0.4 (0.0-0.8) K/mm3 Eos # 0.2 (0.0-0.4) K/mm3 Baso # 0.1 (0.0-0.1) K/mm3 Seg Neutrophils % 66.1 (40.0-70.0) % Seg Neutrophils # 3.5 (1.8-7.7) K/mm3 APTT 29.2 (24.2-36.6) Sec. Sodium 141 (137-145) mmol/L Potassium 4.3 (3.6-5.0) mmol/L Chloride 105.1 (98-107) mmol/L Carbon Dioxide 28 (22-30) mmol/L Anion Gap 12 mmol/L BUN 9 (9-20) mg/dL Creatinine 0.9 (0.8-1.5) mg/dL Estimated GFR > 60 ml/min BUN/Creatinine Ratio 10 % Glucose 82 (75-100) mg/dL Lactic Acid (0.7-2.0) mmol/L Calcium 9.3 (8.4-10.2) mg/dL Total Bilirubin 0.30 (0.1-1.2) mg/dL AST 16 (5-40) units/L ALT 15 (7-56) units/L Alkaline Phosphatase 118 (35-129) units/L Troponin T < 0.010 (0.00-0.029) ng/mL Total Protein 7.8 (6.3-8.2) g/dL Albumin 3.9 (3.9-5) g/dL Albumin/Globulin Ratio 1.0 % Urine Color (Yellow) Urine Turbidity (Clear) Urine pH (5.0-7.0) Ur Specific [place] (1.003-1.030) Urine Protein (Negative) mg/dL Urine Glucose (UA) (Negative) mg/dL Urine Ketones (Negative) mg/dL Urine Blood (Negative) Urine Nitrite (Negative) Urine Bilirubin (Negative) Urine Urobilinogen (<2.0) mg/dL Ur Leukocyte Esterase (Negative) Urine WBC (Auto) (0.0-6.0) /HPF Urine RBC (Auto) (0.0-6.0) /HPF 05/20/19 05/20/19 05/20/19 Range/Units 10:12 13:04 13:04 WBC (4.5-11.0) K/mm3 RBC (3.65-5.03) M/mm3 Hgb (11.8-15.2) gm/dl Hct (35.5-45.6) % MCV (84-94) fl MCH (28-32) pg MCHC (32-34) % RDW (13.2-15.2) % Plt Count (140-440) K/mm3 Lymph % (Auto) (13.4-35.0) % [place] % (Auto) (0.0-7.3) % Eos % (Auto) (0.0-4.3) % Baso % (Auto) (0.0-1.8) % Lymph # (1.2-5.4) K/mm3 [place] # (0.0-0.8) K/mm3 Eos # (0.0-0.4) K/mm3 Baso # (0.0-0.1) K/mm3 Seg Neutrophils % (40.0-70.0) % Seg Neutrophils # (1.8-7.7) K/mm3 APTT (24.2-36.6) Sec. Sodium (137-145) mmol/L Potassium (3.6-5.0) mmol/L Chloride (98-107) mmol/L Carbon Dioxide (22-30) mmol/L Anion Gap mmol/L BUN (9-20) mg/dL Creatinine (0.8-1.5) mg/dL Estimated GFR ml/min BUN/Creatinine Ratio % Glucose (75-100) mg/dL Lactic Acid 1.00 0.60 L (0.7-2.0) mmol/L Calcium (8.4-10.2) mg/dL Total Bilirubin (0.1-1.2) mg/dL AST (5-40) units/L ALT (7-56) units/L Alkaline Phosphatase (35-129) units/L Troponin T < 0.010 (0.00-0.029) ng/mL Total Protein (6.3-8.2) g/dL Albumin (3.9-5) g/dL Albumin/Globulin Ratio % Urine Color (Yellow) Urine Turbidity (Clear) Urine pH (5.0-7.0) Ur Specific [place] (1.003-1.030) Urine Protein (Negative) mg/dL Urine Glucose (UA) (Negative) mg/dL Urine Ketones (Negative) mg/dL Urine Blood (Negative) Urine Nitrite (Negative) Urine Bilirubin (Negative) Urine Urobilinogen (<2.0) mg/dL Ur Leukocyte Esterase (Negative) Urine WBC (Auto) (0.0-6.0) /HPF Urine RBC (Auto) (0.0-6.0) /HPF 05/20/19 Range/Units 14:35 WBC (4.5-11.0) K/mm3 RBC (3.65-5.03) M/mm3 Hgb (11.8-15.2) gm/dl Hct (35.5-45.6) % MCV (84-94) fl MCH (28-32) pg MCHC (32-34) % RDW (13.2-15.2) % Plt Count (140-440) K/mm3 Lymph % (Auto) (13.4-35.0) % [place] % (Auto) (0.0-7.3) % Eos % (Auto) (0.0-4.3) % Baso % (Auto) (0.0-1.8) % Lymph # (1.2-5.4) K/mm3 [place] # (0.0-0.8) K/mm3 Eos # (0.0-0.4) K/mm3 Baso # (0.0-0.1) K/mm3 Seg Neutrophils % (40.0-70.0) % Seg Neutrophils # (1.8-7.7) K/mm3 APTT (24.2-36.6) Sec. Sodium (137-145) mmol/L Potassium (3.6-5.0) mmol/L Chloride (98-107) mmol/L Carbon Dioxide (22-30) mmol/L Anion Gap mmol/L BUN (9-20) mg/dL Creatinine (0.8-1.5) mg/dL Estimated GFR ml/min BUN/Creatinine Ratio % Glucose (75-100) mg/dL Lactic Acid (0.7-2.0) mmol/L Calcium (8.4-10.2) mg/dL Total Bilirubin (0.1-1.2) mg/dL AST (5-40) units/L ALT (7-56) units/L Alkaline Phosphatase (35-129) units/L Troponin T (0.00-0.029) ng/mL Total Protein (6.3-8.2) g/dL Albumin (3.9-5) g/dL Albumin/Globulin Ratio % Urine Color Yellow (Yellow) Urine Turbidity Clear (Clear) Urine pH 6.0 (5.0-7.0) Ur Specific [place] 1.013 (1.003-1.030) Urine Protein <15 mg/dl (Negative) mg/dL Urine Glucose (UA) Neg (Negative) mg/dL Urine Ketones Neg (Negative) mg/dL Urine Blood Neg (Negative) Urine Nitrite Neg (Negative) Urine Bilirubin Neg (Negative) Urine Urobilinogen < 2.0 (<2.0) mg/dL Ur Leukocyte Esterase Neg (Negative) Urine WBC (Auto) 2.0 (0.0-6.0) /HPF Urine RBC (Auto) 1.0 (0.0-6.0) /HPF - Radiology Data Radiology results: report reviewed - Medical Decision Making Was on the chart will discuss results with patient and the need to follow up with wound care Critical care attestation.: If time is entered above; I have spent that time in minutes in the direct care of this critically ill patient, excluding procedure time. ED Disposition Clinical Impression: Leg ulcer, left, Ulcer of right leg, Wound infection, Chest pain Disposition: TO HOME OR SELFCARE Is pt being admited?: No Does the pt Need Aspirin: No Condition: Stable Instructions: Wound Healing and Your Diet (ED), Chronic Wound Care (ED), Acute Wound Care (ED), Wound Infection (ED), Chest Pain (ED) Additional Instructions: return if worse Prescriptions: Sulfamethoxazole/Trimethoprim [Bactrim DS TAB] 2 each PO BID #28 tablet Acetaminophen/Codeine [Tylenol /Codeine # 3 tab] 1 tab PO Q6H PRN #12 tab PRN Reason: pain Referrals: JIMMY CERVANTES MD [Primary Care Provider] - 3-5 Days [facility] [Outside] - 3-5 Days Time of Disposition: 15:09
--- NOTE | 2019-05-20 11:31 | Vascular Lab Report ---
LOWER EXTREMITY ARTERIAL DOPPLER ULTRASOUND HISTORY: Chronic bilateral leg ulcers, diminished pulses in lower extremities COMPARISON: None. TECHNIQUE: Cook-scale, color Doppler and pulse wave Doppler examination of bilateral lower extremity arteries was performed. FINDINGS: RIGHT: Common Femoral artery: Triphasic waveform and normal velocity. Superficial Femoral artery: Triphasic waveform and normal velocity. Popliteal artery: Triphasic waveform and normal velocity. Anterior tibial artery: Triphasic waveform and normal velocity. Posterior tibial artery: Triphasic waveform and normal velocity. LEFT: Common Femoral artery: Triphasic waveform and normal velocity. Superficial Femoral artery: Triphasic waveform and normal velocity. Popliteal artery: Triphasic waveform and normal velocity. Anterior tibial artery: Triphasic waveform and normal velocity. Posterior tibial artery: Triphasic waveform and normal velocity. Additional findings: None. IMPRESSION: 1. No significant abnormality. Signer Name: Justino Donahue Jr, MD Signed: 05/20/2019 11:27 AM Workstation Name: [id number]
[2019-05-20] MEDS ORDERED: PERCOCET 5/325 ONE (12:32)
[2019-05-20] MEDS ORDERED: PERCOCET 5/325 PO ONE (12:35)
[2019-05-20 12:48] VITALS: BP 141/100
[2019-05-20 14:58] LABS: Bilirubin,Urine NEG (Negative); Blood,Urine NEG (Negative); Color,Urine Yellow (Yellow); Protein,Urine <15 mg/dL mg/dL (Negative); Urobilinogen,Urine < 2.0 mg/dL (<2.0)
== END 2019-05-20 15:37 | disposition home or self-care (01) ==
LOC: ED 09:15
DX: L97.929 Non-pressure chronic ulcer of unspecified part of left lower leg with unspecified severity (principal); L97.919 Non-pressure chronic ulcer of unspecified part of right lower leg with unspecified severity; R07.89 Other chest pain; Z98.890 Other specified postprocedural states; X58.XXXA Exposure to other specified factors, initial encounter; Y93.89 Activity, other specified; Y92.89 Other specified places as the place of occurrence of the external cause; Y99.8 Other external cause status
CPT/HCPCS: 36415; 71045; 80053; 81001; 82140; 84484; 85025; 85730; 87040; 93925; J2270; J2405; J7030; 96365; 96375; J0690

== ENCOUNTER 2019-08-10 12:35 | Emergency (ER) | payer SELFPAY ==
[2019-08-10 13:09] VITALS: BP 140/93
--- NOTE | 2019-08-10 13:11 | Event Note ---
ED Screening Note Date of service: 08/10/19 Time: 13:07 ED Screening Note: This is a 38 y.o. M. that presents to the ER with bilateral flank pain, pelvic pain, chills, and nausea. - urinary frequency, urgency, dysuria, hematuria, penile discharge, testicular swelling/pain This initial assessment/diagnostic orders/clinical plan/treatment(s) is/are subject to change based on patients health status, clinical progression and re- assessment by fellow clinical providers in the ED. Further treatment and workup at subsequent clinical providers discretion. Patient/guardian urged not to elope from the ED as their condition may be serious if not clinically assessed and managed. Initial orders include: Labs and CT of abdomen and pelvis
[2019-08-10 14:14] LABS: Bacteria,Urine 1+ /HPF (Negative); Bilirubin,Urine NEG (Negative); Blood,Urine SM (Negative); Color,Urine Yellow (Yellow); Mucus,Urine FEW /HPF; Urobilinogen,Urine < 2.0 mg/dL (<2.0)
[2019-08-10 14:47] LABS: Basophils # (Auto) 0.1 K/mm3 (0.0-0.1); Basophils % (Auto) 0.8 % (0.0-1.8); Eosinophils # (Auto) 0.1 K/mm3 (0.0-0.4); Eosinophils % (Auto) 1.7 % (0.0-4.3); Hematocrit 43.1 % (35.5-45.6); Hemoglobin 14.3 gm/dl (11.8-15.2); Lymphocytes # (Auto) 1.1 K/mm3 (1.2-5.4); Lymphocytes % (Auto) 16.1 % (13.4-35.0); Mean Corpuscular HGB Conc 33 % (32-34); Mean Corpuscular Volume 87 fl (84-94); Monocytes # (Auto) 0.7 K/mm3 (0.0-0.8); Monocytes % (Auto) 9.3 % (0.0-7.3); Platelet Count 343 K/mm3 (140-440); Red Blood Count 4.94 M/mm3 (3.65-5.03); Red Cell Distribution Width 14.5 % (13.2-15.2)
[2019-08-10 15:20] LABS: Alanine Aminotransferase 14 units/L (7-56); Albumin 4.3 g/dL (3.9-5); BUN/Creatinine Ratio 14; Blood Urea Nitrogen 11 mg/dL (9-20); Calcium 9.3 mg/dL (8.4-10.2); Hemolysis Index 7
--- NOTE | 2019-08-10 16:09 | XRay Report ---
CHEST 1 VIEW INDICATION: FEVER/COUGH. COMPARISON: None FINDINGS: Support devices: None. Heart: Within normal limits. Lungs/Pleura: No acute air space or interstitial disease. Additional findings: Lower cervical fusion changes are partially imaged. IMPRESSION: No acute findings. Signer Name: Justino Donahue Jr, MD Signed: 08/10/2019 4:04 PM Workstation Name: [id number]
--- NOTE | 2019-08-10 16:27 | Emergency Department Report ---
ED General Adult HPI - General Chief complaint: Fever Stated complaint: BACK PAIN/HEADACHES/HOT FLASHES Time Seen by Provider: 08/10/19 13:07 Source: patient Mode of arrival: Ambulatory Limitations: No Limitations - History of Present Illness Initial comments: Patient presents to the emergency department with a chief complaint of sudden onset of nausea, bodies, and fever. Patient states that he woke up this morning was transient sweat and was very hot and then began to have chills. Patient also complains of a cough. Patient is unsure of any sick contacts. Patient denies shortness of breath, chest pain, or abdominal pain on my history -: Sudden Severity scale (0 -10): 3 Quality: aching Consistency: constant Improves with: none Worsens with: none Associated Symptoms: denies other symptoms Treatments Prior to Arrival: none - Related Data Previous Rx's Medication Instructions Recorded Last Taken Type Warfarin Sodium [Coumadin] 5 mg PO DAILY 30 Days #30 tablet 03/10/19 Unknown Rx Naproxen [Naprosyn] 500 mg PO BID #14 tablet 04/06/19 Unknown Rx Acetaminophen/Codeine [Tylenol 1 tab PO Q6H PRN #12 tab 05/20/19 Unknown Rx /Codeine # 3 tab] Sulfamethoxazole/Trimethoprim 2 each PO BID #28 tablet 05/20/19 Unknown Rx [Bactrim DS TAB] ALBUTEROL Inhaler (OR & NICU) 2 puff IH Q4HR PRN #1 inhalation 08/10/19 Unknown Rx [ProAir HFA Inhaler] Benzonatate [Tessalon Perles] 100 mg PO Q8HR PRN #20 capsule 08/10/19 Unknown Rx Codeine Phosphate/Guaifenesin 180 ml PO Q12HR PRN #180 liquid 08/10/19 Unknown Rx [Guaifenesin-Codeine Syrup] Ondansetron [Zofran Odt] 4 mg PO Q4HR PRN #20 tab.rapdis 08/10/19 Unknown Rx Promethazine [Phenergan TAB] 25 mg PO Q6HR PRN #20 tab 08/10/19 Unknown Rx Allergies Allergy/AdvReac Type Severity Reaction Status Date / Time No Known Allergies Allergy Verified 07/25/18 10:40 ED Review of Systems ROS: Stated complaint: BACK PAIN/HEADACHES/HOT FLASHES Other details as noted in HPI Comment: All other systems reviewed and negative Constitutional: chills, fever Eyes: denies: eye pain, eye discharge, vision change ENT: denies: ear pain, throat pain Respiratory: cough. denies: shortness of breath, wheezing Cardiovascular: denies: chest pain, palpitations Endocrine: no symptoms reported Gastrointestinal: denies: abdominal pain, nausea, diarrhea Genitourinary: denies: urgency, dysuria Musculoskeletal: denies: back pain, joint swelling, arthralgia Skin: denies: rash, lesions Neurological: denies: headache, weakness, paresthesias Psychiatric: denies: anxiety, depression Hematological/Lymphatic: denies: easy bleeding, easy bruising ED Past Medical Hx - Past Medical History Previous Medical History?: Yes Hx Deep Vein Thrombosis: Yes Additional medical history: DVT - Surgical History Past Surgical History?: Yes Additional Surgical History: Neck Surgery - Social History Smoking Status: Current Every Day Smoker Substance Use Type: Alcohol, Marijuana - Medications Home Medications: Home Medications Medication Instructions Recorded Confirmed Last Taken Type Warfarin Sodium [Coumadin] 5 mg PO DAILY 30 Days #30 tablet 03/10/19 Unknown Rx Naproxen [Naprosyn] 500 mg PO BID #14 tablet 04/06/19 Unknown Rx Acetaminophen/Codeine [Tylenol 1 tab PO Q6H PRN #12 tab 05/20/19 Unknown Rx /Codeine # 3 tab] Sulfamethoxazole/Trimethoprim 2 each PO BID #28 tablet 05/20/19 Unknown Rx [Bactrim DS TAB] ALBUTEROL Inhaler (OR & NICU) 2 puff IH Q4HR PRN #1 inhalation 08/10/19 Unknown Rx [ProAir HFA Inhaler] Benzonatate [Tessalon Perles] 100 mg PO Q8HR PRN #20 capsule 08/10/19 Unknown Rx Codeine Phosphate/Guaifenesin 180 ml PO Q12HR PRN #180 liquid 08/10/19 Unknown Rx [Guaifenesin-Codeine Syrup] Ondansetron [Zofran Odt] 4 mg PO Q4HR PRN #20 tab.rapdis 08/10/19 Unknown Rx Promethazine [Phenergan TAB] 25 mg PO Q6HR PRN #20 tab 08/10/19 Unknown Rx ED Physical Exam - General Limitations: No Limitations General appearance: alert, in no apparent distress - Head Head exam: Present: atraumatic, normocephalic - Eye Eye exam: Present: normal appearance, PERRL, EOMI - ENT ENT exam: Present: mucous membranes moist - Neck Neck exam: Present: normal inspection - Respiratory Respiratory exam: Present: normal lung sounds bilaterally. Absent: respiratory distress, rales - Cardiovascular Cardiovascular Exam: Present: regular rate, normal rhythm. Absent: systolic murmur, diastolic murmur, rubs, gallop - GI/Abdominal GI/Abdominal exam: Present: soft, normal bowel sounds - Rectal Rectal exam: Present: deferred - Extremities Exam Extremities exam: Present: normal inspection - Back Exam Back exam: Present: normal inspection - Neurological Exam Neurological exam: Present: alert, oriented X3 - Psychiatric Psychiatric exam: Present: normal affect, normal mood - Skin Skin exam: Present: warm, dry, intact, normal color. Absent: rash ED Course Vital Signs 08/10/19 13:07 Temperature 98.3 F Pulse Rate 88 Respiratory 18 Rate Blood Pressure 140/93 O2 Sat by Pulse 99 Oximetry ED Medical Decision Making - Lab Data Result diagrams: 08/10/19 13:49 08/10/19 13:49 Lab Results 08/10/19 08/10/19 08/10/19 Range/Units 13:18 13:49 13:49 WBC 7.0 (4.5-11.0) K/mm3 RBC 4.94 (3.65-5.03) M/mm3 Hgb 14.3 (11.8-15.2) gm/dl Hct 43.1 (35.5-45.6) % MCV 87 (84-94) fl MCH 29 (28-32) pg MCHC 33 (32-34) % RDW 14.5 (13.2-15.2) % Plt Count 343 (140-440) K/mm3 Lymph % (Auto) 16.1 (13.4-35.0) % [place] % (Auto) 9.3 H (0.0-7.3) % Eos % (Auto) 1.7 (0.0-4.3) % Baso % (Auto) 0.8 (0.0-1.8) % Lymph # 1.1 L (1.2-5.4) K/mm3 [place] # 0.7 (0.0-0.8) K/mm3 Eos # 0.1 (0.0-0.4) K/mm3 Baso # 0.1 (0.0-0.1) K/mm3 Seg Neutrophils % 72.1 H (40.0-70.0) % Seg Neutrophils # 5.1 (1.8-7.7) K/mm3 Sodium 141 (137-145) mmol/L Potassium 4.5 (3.6-5.0) mmol/L Chloride 101.5 (98-107) mmol/L Carbon Dioxide 26 (22-30) mmol/L Anion Gap 18 mmol/L BUN 11 (9-20) mg/dL Creatinine 0.8 (0.8-1.5) mg/dL Estimated GFR > 60 ml/min BUN/Creatinine Ratio 14 % Glucose 87 (75-100) mg/dL Calcium 9.3 (8.4-10.2) mg/dL Total Bilirubin 0.60 (0.1-1.2) mg/dL AST 16 (5-40) units/L ALT 14 (7-56) units/L Alkaline Phosphatase 141 H (35-129) units/L Total Protein 8.8 H (6.3-8.2) g/dL Albumin 4.3 (3.9-5) g/dL Albumin/Globulin Ratio 1.0 % Lipase 32 (13-60) units/L Urine Color Yellow (Yellow) Urine Turbidity Clear (Clear) Urine pH 6.0 (5.0-7.0) Ur Specific [place] 1.012 (1.003-1.030) Urine Protein 30 mg/dl (Negative) mg/dL Urine Glucose (UA) Neg (Negative) mg/dL Urine Ketones Tr (Negative) mg/dL Urine Blood Sm (Negative) Urine Nitrite Neg (Negative) Urine Bilirubin Neg (Negative) Urine Urobilinogen < 2.0 (<2.0) mg/dL Ur Leukocyte Esterase Neg (Negative) Urine WBC (Auto) 1.0 (0.0-6.0) /HPF Urine RBC (Auto) 4.0 (0.0-6.0) /HPF U Epithel Cells (Auto) < 1.0 (0-13.0) /HPF Urine Bacteria (Auto) 1+ (Negative) /HPF Urine Mucus Few /HPF - Radiology Data Radiology results: report reviewed - Medical Decision Making Discussed results with patient Critical care attestation.: If time is entered above; I have spent that time in minutes in the direct care of this critically ill patient, excluding procedure time. ED Disposition Clinical Impression: Fever, Myalgia, Nausea, Cough Disposition: TO HOME OR SELFCARE Is pt being admited?: No Does the pt Need Aspirin: No Condition: Stable Instructions: Musculoskeletal Pain (ED), Cold Symptoms (ED), Fever in Adults (ED) Referrals: [facility] [place] [facility] [place] [Primary Care Provider] - 3-5 Days [facility] [Provider Group] - 3-5 Days [facility] [Provider Group] - 3-5 Days Forms: Work/School Release Form(ED) Time of Disposition: 16:24
== END 2019-08-10 17:02 | disposition home or self-care (01) ==
LOC: ED 12:35
DX: R50.9 Fever, unspecified (principal); R11.2 Nausea with vomiting, unspecified; R05 Cough
CPT/HCPCS: 36415; 71045; 80053; 81001; 83690; 85025

== ENCOUNTER 2019-09-11 15:47 | Emergency (ER) | payer SELFPAY ==
--- NOTE | 2019-09-11 16:15 | Emergency Department Report ---
Chief Complaint: Extremity Problem,Nontraumatic Stated Complaint: LT LEG PAIN - HPI History of Present Illness: 38yo BM states that he has leg ulcers bilaterally but his R lower leg ulcer has green discharge x 2 days. - Exam Vital Signs: Vital Signs 09/11/19 15:58 Temperature 98.6 F Pulse Rate 97 H Respiratory 16 Rate Blood Pressure 142/89 O2 Sat by Pulse 98 Oximetry MSE screening note: Focused history and physical exam performed. Due to findings the following was ordered: ED Disposition for MSE Condition: Stable
[2019-09-11 16:44] LABS: Basophils # (Auto) 0.1 K/mm3 (0.0-0.1); Basophils % (Auto) 0.6 % (0.0-1.8); Eosinophils # (Auto) 0.2 K/mm3 (0.0-0.4); Hematocrit 38.2 % (35.5-45.6); Hemoglobin 12.9 gm/dl (11.8-15.2); Lymphocytes # (Auto) 1.5 K/mm3 (1.2-5.4); Lymphocytes % (Auto) 18.7 % (13.4-35.0); Mean Corpuscular HGB Conc 34 % (32-34); Mean Corpuscular Volume 87 fl (84-94); Monocytes # (Auto) 0.7 K/mm3 (0.0-0.8); Monocytes % (Auto) 9.5 % (0.0-7.3); Platelet Count 310 K/mm3 (140-440); Red Blood Count 4.42 M/mm3 (3.65-5.03); Red Cell Distribution Width 14.4 % (13.2-15.2)
[2019-09-11 17:07] LABS: Alanine Aminotransferase 29 units/L (7-56); Albumin 4.3 g/dL (3.9-5); BUN/Creatinine Ratio 14; Blood Urea Nitrogen 13 mg/dL (9-20); Calcium 9.3 mg/dL (8.4-10.2); Hemolysis Index 13
[2019-09-11 18:20] VITALS: BP 122/79
--- NOTE | 2019-09-11 19:09 | Emergency Department Report ---
ED General Adult HPI - General Chief complaint: Extremity Problem,Nontraumatic Stated complaint: LT LEG PAIN Time Seen by Provider: 09/11/19 18:48 Source: patient Mode of arrival: Ambulatory Limitations: No Limitations - History of Present Illness Initial comments: The patient presents to the emergency department with chief complaint of bilateral leg ulcers. The patient has been seen by me before for the same chief complaint and was instructed to follow-up with wound care but the patient states he lost the paperwork and did not get a chance to follow-up with wound care. The patient is concerned because he's had some mild drainage from his leg ul cers. Pt denies fever. Location: lower extremity Severity scale (0 -10): 2 Quality: aching Consistency: constant Improves with: none Worsens with: none Associated Symptoms: denies other symptoms Treatments Prior to Arrival: none - Related Data Previous Rx's Medication Instructions Recorded Last Taken Type Warfarin Sodium [Coumadin] 5 mg PO DAILY 30 Days #30 tablet 03/10/19 Unknown Rx Naproxen [Naprosyn] 500 mg PO BID #14 tablet 04/06/19 Unknown Rx Acetaminophen/Codeine [Tylenol 1 tab PO Q6H PRN #12 tab 05/20/19 Unknown Rx /Codeine # 3 tab] Sulfamethoxazole/Trimethoprim 2 each PO BID #28 tablet 05/20/19 Unknown Rx [Bactrim DS TAB] ALBUTEROL Inhaler (OR & NICU) 2 puff IH Q4HR PRN #1 inhalation 08/10/19 Unknown Rx [ProAir HFA Inhaler] Benzonatate [Tessalon Perles] 100 mg PO Q8HR PRN #20 capsule 08/10/19 Unknown Rx Codeine Phosphate/Guaifenesin 180 ml PO Q12HR PRN #180 liquid 08/10/19 Unknown Rx [Guaifenesin-Codeine Syrup] Ondansetron [Zofran Odt] 4 mg PO Q4HR PRN #20 tab.rapdis 08/10/19 Unknown Rx Promethazine [Phenergan TAB] 25 mg PO Q6HR PRN #20 tab 08/10/19 Unknown Rx Acetaminophen/Codeine [Tylenol 1 tab PO Q6H PRN #15 tab 09/11/19 Unknown Rx /Codeine # 3 tab] Sulfamethoxazole/Trimethoprim 2 each PO BID #28 tablet 09/11/19 Unknown Rx [Bactrim DS TAB] Allergies Allergy/AdvReac Type Severity Reaction Status Date / Time No Known Allergies Allergy Verified 07/25/18 10:40 ED Review of Systems ROS: Stated complaint: LT LEG PAIN Other details as noted in HPI Comment: All other systems reviewed and negative Constitutional: denies: chills, fever Eyes: denies: eye pain, eye discharge, vision change ENT: denies: ear pain, throat pain Respiratory: denies: cough, shortness of breath, wheezing Cardiovascular: denies: chest pain, palpitations Endocrine: no symptoms reported Gastrointestinal: denies: abdominal pain, nausea, diarrhea Genitourinary: denies: urgency, dysuria Musculoskeletal: denies: back pain, joint swelling, arthralgia Skin: denies: rash, lesions Neurological: denies: headache, weakness, paresthesias Psychiatric: denies: anxiety, depression Hematological/Lymphatic: denies: easy bleeding, easy bruising ED Past Medical Hx - Past Medical History Previous Medical History?: Yes Hx Deep Vein Thrombosis: Yes Additional medical history: DVT - Surgical History Past Surgical History?: Yes Additional Surgical History: Neck Surgery - Social History Smoking Status: Never Smoker Substance Use Type: None - Medications Home Medications: Home Medications Medication Instructions Recorded Confirmed Last Taken Type Warfarin Sodium [Coumadin] 5 mg PO DAILY 30 Days #30 tablet 03/10/19 Unknown Rx Naproxen [Naprosyn] 500 mg PO BID #14 tablet 04/06/19 Unknown Rx Acetaminophen/Codeine [Tylenol 1 tab PO Q6H PRN #12 tab 05/20/19 Unknown Rx /Codeine # 3 tab] Sulfamethoxazole/Trimethoprim 2 each PO BID #28 tablet 05/20/19 Unknown Rx [Bactrim DS TAB] ALBUTEROL Inhaler (OR & NICU) 2 puff IH Q4HR PRN #1 inhalation 08/10/19 Unknown Rx [ProAir HFA Inhaler] Benzonatate [Tessalon Perles] 100 mg PO Q8HR PRN #20 capsule 08/10/19 Unknown Rx Codeine Phosphate/Guaifenesin 180 ml PO Q12HR PRN #180 liquid 08/10/19 Unknown Rx [Guaifenesin-Codeine Syrup] Ondansetron [Zofran Odt] 4 mg PO Q4HR PRN #20 tab.rapdis 08/10/19 Unknown Rx Promethazine [Phenergan TAB] 25 mg PO Q6HR PRN #20 tab 08/10/19 Unknown Rx Acetaminophen/Codeine [Tylenol 1 tab PO Q6H PRN #15 tab 09/11/19 Unknown Rx /Codeine # 3 tab] Sulfamethoxazole/Trimethoprim 2 each PO BID #28 tablet 09/11/19 Unknown Rx [Bactrim DS TAB] ED Physical Exam - General Limitations: No Limitations General appearance: alert, in no apparent distress - Head Head exam: Present: atraumatic, normocephalic - Eye Eye exam: Present: normal appearance - ENT ENT exam: Present: mucous membranes moist - Neck Neck exam: Present: normal inspection - Respiratory Respiratory exam: Present: normal lung sounds bilaterally. Absent: respiratory distress - Cardiovascular Cardiovascular Exam: Present: regular rate, normal rhythm. Absent: systolic murmur, diastolic murmur, rubs, gallop - GI/Abdominal GI/Abdominal exam: Present: soft, normal bowel sounds - Rectal Rectal exam: Present: deferred - Extremities Exam Extremities exam: Present: normal inspection - Back Exam Back exam: Present: normal inspection - Neurological Exam Neurological exam: Present: alert, oriented X3 - Psychiatric Psychiatric exam: Present: normal affect, normal mood - Skin Skin exam: Present: warm, dry, intact, normal color, other (patient has bilateral lower prescription admitting medial leg ulcers that have improved since the last time seen by me). Absent: rash ED Course Vital Signs 09/11/19 09/11/19 15:58 18:17 Temperature 98.6 F 98.1 F Pulse Rate 97 H 83 Respiratory 16 17 Rate Blood Pressure 142/89 Blood Pressure 122/79 [Left] O2 Sat by Pulse 98 98 Oximetry ED Medical Decision Making - Lab Data Result diagrams: 09/11/19 16:17 09/11/19 16:17 Lab Results 09/11/19 09/11/19 Range/Units 16:17 16:17 WBC 7.8 (4.5-11.0) K/mm3 RBC 4.42 (3.65-5.03) M/mm3 Hgb 12.9 (11.8-15.2) gm/dl Hct 38.2 (35.5-45.6) % MCV 87 (84-94) fl MCH 29 (28-32) pg MCHC 34 (32-34) % RDW 14.4 (13.2-15.2) % Plt Count 310 (140-440) K/mm3 Lymph % (Auto) 18.7 (13.4-35.0) % Lane % (Auto) 9.5 H (0.0-7.3) % Eos % (Auto) 2.0 (0.0-4.3) % Baso % (Auto) 0.6 (0.0-1.8) % Lymph # 1.5 (1.2-5.4) K/mm3 Lane # 0.7 (0.0-0.8) K/mm3 Eos # 0.2 (0.0-0.4) K/mm3 Baso # 0.1 (0.0-0.1) K/mm3 Seg Neutrophils % 69.2 (40.0-70.0) % Seg Neutrophils # 5.4 (1.8-7.7) K/mm3 Sodium 139 (137-145) mmol/L Potassium 3.9 (3.6-5.0) mmol/L Chloride 101.7 (98-107) mmol/L Carbon Dioxide 23 (22-30) mmol/L Anion Gap 18 mmol/L BUN 13 (9-20) mg/dL Creatinine 0.9 (0.8-1.5) mg/dL Estimated GFR > 60 ml/min BUN/Creatinine Ratio 14 % Glucose 89 (75-100) mg/dL Calcium 9.3 (8.4-10.2) mg/dL Total Bilirubin 0.20 (0.1-1.2) mg/dL AST 20 (5-40) units/L ALT 29 (7-56) units/L Alkaline Phosphatase 140 H (35-129) units/L Total Protein 8.6 H (6.3-8.2) g/dL Albumin 4.3 (3.9-5) g/dL Albumin/Globulin Ratio 1.0 % - Medical Decision Making Plan of care discussed with patient Critical care attestation.: If time is entered above; I have spent that time in minutes in the direct care of this critically ill patient, excluding procedure time. ED Disposition Clinical Impression: Bilateral leg ulcer Disposition: TO HOME OR SELFCARE Is pt being admited?: No Does the pt Need Aspirin: No Condition: Stable Instructions: Pressure Ulcer (ED) Additional Instructions: Please follow up with wound care as discussed return if worse Referrals: [facility] [Primary Care Provider] - 3-5 Days [facility] [Provider Group] - 3-5 Days [facility] [Provider Group] - 3-5 Days [facility] [Outside] - 3-5 Days Time of Disposition: 19:09
== END 2019-09-11 19:32 | disposition home or self-care (01) ==
LOC: ED 15:47
DX: L97.229 Non-pressure chronic ulcer of left calf with unspecified severity (principal); L97.219 Non-pressure chronic ulcer of right calf with unspecified severity; Z86.718 Personal history of other venous thrombosis and embolism; Z98.890 Other specified postprocedural states; Z79.899 Other long term (current) drug therapy
CPT/HCPCS: 36415; 80053; 85025